=== PATIENT | male | born 1995 | race Two or more races ===

== ENCOUNTER 2020-08-19 17:57 | Emergency (ER) | payer OTHER ==
[~2020-08-19] VITALS: Ht 170.2 cm; Wt 94.7 kg
--- NOTE | 2020-08-19 21:27 | REPVR ---
PROCEDURE INFORMATION: Exam: MR Lumbar Spine Without Contrast. Exam date and time: 08/19/2020 9:08 PM Age: 25 years old Clinical indication: Weakness; Patient HX: Low back pain, left perineal numbness R/O cauda equina TECHNIQUE: Imaging protocol: Multiplanar magnetic resonance images of the lumbar spine without intravenous contrast. COMPARISON: No relevant prior studies available. FINDINGS: Vertebral body heights are maintained. No abnormal marrow signal. Mild disc height loss at L5-S1. Remaining disc space heights are preserved. No cord compression. No abnormal cord signal. Conus medullaris terminates at the L1 level. Paravertebral soft tissues are unremarkable. L1-L2: No significant canal or foraminal narrowing. L2-L3: No significant canal or foraminal narrowing. L3-L4: No significant canal or foraminal narrowing. L4-L5: No significant canal or foraminal narrowing. L5-S1: Minimal posterior disc bulge and facet hypertrophy causes mild canal narrowing and mild bilateral foraminal narrowing. IMPRESSION: 1. No acute findings in the lumbar spine. No evidence of cauda equina compression. 2. Chronic findings, as above. Electronically signed by: Tomas Moore On 08/19/2020 21:27:35 PM
[2020-08-19 22:09] VITALS: BP 125/73
== END 2020-08-19 22:29 | disposition home or self-care (01) ==
LOC: M ED 17:57
DX: R20.2 Paresthesia of skin (principal)